=== PATIENT | female | born 1955 | race Caucasian/White ===

== ENCOUNTER 2019-09-09 07:21 | Outpatient (CLI) | payer MEDICARE, OTHER, SELFPAY ==
--- NOTE | ~2019-09-09 | CT_ITS ---
EXAMINATION: CT abdomen wo/w con DATE: 09/09/2019 08:16 INDICATION: Left kidney mass TECHNIQUE: Computed tomography (CT) of the abdomen was performed without intravenous contrast. CT of the abdomen was then performed with a total of 100 mL Omnipaque 350 intravenous contrast. The dose-le ngth product (DLP) was 525.12 mGy-cm. Automated exposure control and iterative reconstruction dentaZOOM were employed. COMPARISON: 09/02/2018, 01/21/2018 FINDINGS: The lung bases are clear. The heart size is normal. Cysts of the liver measure up to 7.7 cm in the right hepatic lobe. The spleen, pancreas, gallbladder, and adrenal glands are normal. There i s a stable 2.5 x 2.3 cm fat attenuation mass in the left mid kidney with thin internal septation. The right kidney is unremarkable. There are no pathologically enlarged abdominal lymph nodes. A moderate volume of colonic stool is present. There are no dilated loops of bowel. There is moderate lumbar sp ondylosis. A tiny fat-containing umbilical hernia is noted. IMPRESSION: 1. Stable left kidney mass, most consistent with an angiomyolipoma. Reviewed, dictated and finalized at location A.
[2019-09-09 07:49] LABS: Estimated Glomerular Filt Rate > 60
== END 2019-09-09 07:22 | disposition home or self-care (01) ==
PROVIDERS: PCP Internal Medicine; Visit Provider Urology
DX: N28.89 Other specified disorders of kidney and ureter (principal)
CPT/HCPCS: 74170; Q9965

== ENCOUNTER 2020-02-09 11:48 | Outpatient (CLI) | payer MEDICARE, SELFPAY ==
[2020-02-09 12:00] LABS: Basophils Absolute Auto 0.04 K/mm3 (0.00-0.10); Basophils Percent Auto 0.7 % (0.0-1.0); Eosinophils Absolute Auto 0.09 K/mm3 (0.02-0.50); Eosinophils Percent Auto 1.7 % (1.0-6.0); Immature Granulocyte Absolute 0.01 K/mm3 (0.00-0.00); Immature Granulocyte Percent A 0.2 % (0.0-0.0); Lymphocytes Absolute Auto 2.04 K/mm3 (1.10-4.50); Lymphocytes Percent Auto 38.2 % (18.0-42.0); Mean Corpuscular HGB Conc 31.4 g/dL (32.0-36.0); Mean Corpuscular Hemoglobin 25.8 pg (27.0-31.0); Mean Platelet Volume 11.3 fl (9.2-11.8); Monocytes Absolute Auto 0.51 K/mm3 (0.10-0.90); Monocytes Percent Auto 9.6 % (2.0-11.0); Neutrophils Absolute Auto 2.7 K/mm3 (1.7-7.2); Neutrophils Percent Auto 49.6 % (50.0-70.0); Platelet Count Result 228 K/mm3 (150-420); Red Blood Count 4.27 M/mm3 (4.20-5.40); Red Cell Distribution Width 15.2 % (11.6-14.4); White Blood Count 5.3 K/mm3 (4.8-10.8)
[2020-02-09 12:26] LABS: Add Urine Microscopic? NO; Appearance Urine Clear (Clear); Bilirubin Urine Negative (Negative); Blood Urine Negative (Negative); Color Urine Yellow (Yellow); Glucose Urine UA Negative (Negative); Ketones Urine Negative (Negative); Leukocyte Esterase Ur Negative (Negative); Nitrate Urine Negative (Negative); Protein Urine Negative (Negative); Specific Grav Ur 1.025 (1.010-1.020); Urobilinogen Urine 0.2 mg/dL (0.2-1.0); pH Urine 5.5 (5.0-8.0)
[2020-02-09 13:04] LABS: Alanine Aminotransferase 23 U/L (14-59); Alkaline Phosphatase 85 U/L (46-116); Anion Gap 10 mmol/L (8-16); Aspartate Amino Transferase 20 U/L (15-37); Bilirubin,Total 0.2 mg/dL (0.00-1.00); Blood Urea Nitrogen 12 mg/dL (7-18); Calcium 9.1 mg/dL (8.5-10.1); Carbon Dioxide 26 mmol/L (21-32); Chloride 105 mmol/L (98-108); Cholesterol 209 mg/dL (0-200); Estimated Glomerular Filt Rate > 60; Glucose 84 mg/dL (70-99); HDL Direct 90 mg/dL (40-60); LDL Cholesterol Calculated 97 mg/dL (<130); Osmolality Calculated 290 mOsm/kg (285-295); Potassium 4.3 mmol/L (3.5-5.1); Sodium 141 mmol/L (136-145); Thyroid Stimulating Hormone 1.86 uIU/mL (0.36-3.74); Triglycerides 112 mg/dL (0-150)
[2020-02-09 16:46] LABS: Reticulocyte Hemoglobin Conten 29.3 pg (28.0-35.0); Reticulocyte Percent 1.05 % (0.50-1.50); Reticulocytes Absolute 0.04 M/mm3 (0.02-0.1)
[2020-02-09 17:05] LABS: Ferritin 6 ng/mL (8-252); Iron 28 ug/dL (50-170); Percent Iron Saturation 8 % (12-57)
== END 2020-02-09 11:49 | disposition home or self-care (01) ==
LOC: CHSLAB 11:50
PROVIDERS: PCP Internal Medicine; Visit Provider Internal Medicine
DX: R94.5 Abnormal results of liver function studies (principal); F32.9 Major depressive disorder, single episode, unspecified; D64.9 Anemia, unspecified; Z00.00 Encounter for general adult medical examination without abnormal findings; Z13.220 Encounter for screening for lipoid disorders
CPT/HCPCS: 36415; 80053; 80061; 81003; 82728; 83540; 83550; 84443; 85025; 85046

== ENCOUNTER 2021-02-09 10:01 | Outpatient (CLI) | payer MEDICARE, SELFPAY ==
[2021-02-09 10:50] LABS: Influenza A QL RT-PCR Negative (Negative); Influenza B QL RT-PCR Negative (Negative); SARS-CoV-2 RNA PCR Negative (Negative)
[2021-02-09 12:46] LABS: Add Urine Microscopic? YES; Appearance Urine Clear (Clear); Basophils Absolute Auto 0.04 K/mm3 (0.00-0.10); Basophils Percent Auto 0.5 % (0.0-1.0); Bilirubin Urine Negative (Negative); Blood Urine 2+ (Negative); Color Urine Yellow (Yellow); Eosinophils Absolute Auto 0.15 K/mm3 (0.02-0.50); Eosinophils Percent Auto 1.8 % (1.0-6.0); Glucose Urine UA Negative (Negative); Hematocrit 44.9 % (35.0-42.0); Hemoglobin 14.9 g/dL (11.7-13.8); Immature Granulocyte Absolute 0.03 K/mm3 (0.00-0.00); Immature Granulocyte Percent A 0.4 % (0.0-0.0); Ketones Urine Negative (Negative); Leukocyte Esterase Ur Trace (Negative); Lymphocytes Absolute Auto 2.18 K/mm3 (1.10-4.50); Lymphocytes Percent Auto 26.2 % (18.0-42.0); Mean Corpuscular HGB Conc 33.2 g/dL (32.0-36.0); Mean Corpuscular Hemoglobin 30.3 pg (27.0-31.0); Mean Corpuscular Volume 91.3 fL (78.0-102.0); Monocytes Absolute Auto 0.88 K/mm3 (0.10-0.90); Monocytes Percent Auto 10.6 % (2.0-11.0); Neutrophils Percent Auto 60.5 % (50.0-70.0); Nitrate Urine Negative (Negative); Platelet Count Result 204 K/mm3 (150-420); Protein Urine Negative (Negative); Red Blood Count 4.92 M/mm3 (4.20-5.40); Specific Grav Ur >= 1.030 (1.010-1.020); Urobilinogen Urine 0.2 mg/dL (0.2-1.0); White Blood Count 8.3 K/mm3 (4.8-10.8)
[2021-02-09 12:57] LABS: WBC Urine None seen /hpf (0-3)
[2021-02-09 12:58] LABS: Bacteria Urine Trace /hpf; Mucus Urine Moderate /lpf
[2021-02-09 13:26] LABS: Alanine Aminotransferase 21 U/L (14-59); Albumin Level 4.2 g/dL (3.4-5.0); Alkaline Phosphatase 92 U/L (46-116); Anion Gap 8 mmol/L (8-16); Aspartate Amino Transferase 16 U/L (15-37); Bilirubin,Total 0.3 mg/dL (0.00-1.00); Blood Urea Nitrogen 12 mg/dL (7-18); Calcium 9.4 mg/dL (8.5-10.1); Carbon Dioxide 30 mmol/L (21-32); Chloride 104 mmol/L (98-108); Cholesterol 217 mg/dL (0-200); Estimated Glomerular Filt Rate > 60; Glucose 86 mg/dL (70-99); HDL Direct 97 mg/dL (40-60); LDL Cholesterol Calculated 106 mg/dL (<130); Osmolality Calculated 292 mOsm/kg (285-295); Potassium 4.3 mmol/L (3.5-5.1); Sodium 142 mmol/L (136-145); Thyroid Stimulating Hormone 1.45 uIU/mL (0.36-3.74); Total Protein 7.6 g/dL (6.4-8.2); Triglycerides 70 mg/dL (0-150)
== END 2021-02-09 10:02 | disposition home or self-care (01) ==
PROVIDERS: PCP Internal Medicine; Visit Provider Internal Medicine
DX: F34.1 Dysthymic disorder (principal); J02.9 Acute pharyngitis, unspecified; R52 Pain, unspecified; Z20.822 Contact with and (suspected) exposure to COVID-19; R53.83 Other fatigue; D72.818 Other decreased white blood cell count; D64.9 Anemia, unspecified; E78.5 Hyperlipidemia, unspecified; Z00.00 Encounter for general adult medical examination without abnormal findings
CPT/HCPCS: 36415; 80053; 80061; 81001; 84443; 85025; 87502; C9803; U0003; U0005

== ENCOUNTER 2022-02-17 11:32 | Outpatient (CLI) | payer MEDICARE, SELFPAY ==
[2022-02-17 11:46] LABS: Add Urine Microscopic? NO; Appearance Urine Clear (Clear); Basophils Absolute Auto 0.04 K/mm3 (0.00-0.10); Basophils Percent Auto 0.7 % (0.0-1.0); Bilirubin Urine Negative (Negative); Blood Urine Negative (Negative); Color Urine Yellow (Yellow); Eosinophils Absolute Auto 0.13 K/mm3 (0.02-0.50); Eosinophils Percent Auto 2.3 % (1.0-6.0); Glucose Urine UA Negative (Negative); Hematocrit 40.1 % (35.0-42.0); Hemoglobin 13.5 g/dL (11.7-13.8); Immature Granulocyte Absolute 0.01 K/mm3 (0.00-0.00); Immature Granulocyte Percent A 0.2 % (0.0-0.0); Ketones Urine Negative (Negative); Leukocyte Esterase Ur Negative (Negative); Lymphocytes Absolute Auto 2.48 K/mm3 (1.10-4.50); Lymphocytes Percent Auto 44.4 % (18.0-42.0); Mean Corpuscular HGB Conc 33.7 g/dL (32.0-36.0); Mean Corpuscular Hemoglobin 30.3 pg (27.0-31.0); Mean Corpuscular Volume 89.9 fL (78.0-102.0); Mean Platelet Volume 10.6 fl (9.2-11.8); Monocytes Absolute Auto 0.48 K/mm3 (0.10-0.90); Monocytes Percent Auto 8.6 % (2.0-11.0); Neutrophils Absolute Auto 2.5 K/mm3 (1.7-7.2); Neutrophils Percent Auto 43.8 % (50.0-70.0); Nitrate Urine Negative (Negative); Platelet Count Result 189 K/mm3 (150-420); Protein Urine Negative (Negative); Red Blood Count 4.46 M/mm3 (4.20-5.40); Specific Grav Ur >= 1.030 (1.010-1.020); Urobilinogen Urine 0.2 mg/dL (0.2-1.0); White Blood Count 5.6 K/mm3 (4.8-10.8)
[2022-02-17 14:05] LABS: Alanine Aminotransferase 21 U/L (14-59); Albumin Level 4.2 g/dL (3.4-5.0); Alkaline Phosphatase 87 U/L (46-116); Anion Gap 9 mmol/L (8-16); Aspartate Amino Transferase 16 U/L (15-37); Bilirubin,Total 0.3 mg/dL (0.00-1.00); Blood Urea Nitrogen 11 mg/dL (7-18); Carbon Dioxide 29 mmol/L (21-32); Chloride 105 mmol/L (98-108); Cholesterol 217 mg/dL (0-200); Estimated Glomerular Filt Rate > 60; Glucose 92 mg/dL (70-99); HDL Direct 83 mg/dL (40-60); LDL Cholesterol Calculated 119 mg/dL (<130); Osmolality Calculated 295 mOsm/kg (285-295); Potassium 4.2 mmol/L (3.5-5.1); Sodium 143 mmol/L (136-145); Total Protein 7.1 g/dL (6.4-8.2); Triglycerides 77 mg/dL (0-150)
== END 2022-02-17 11:33 | disposition home or self-care (01) ==
LOC: CHSLAB 11:34
PROVIDERS: PCP Internal Medicine; Visit Provider Internal Medicine
DX: F34.1 Dysthymic disorder (principal); Z00.00 Encounter for general adult medical examination without abnormal findings; E78.5 Hyperlipidemia, unspecified; D64.9 Anemia, unspecified; R53.83 Other fatigue
CPT/HCPCS: 36415; 80053; 80061; 81003; 84443; 85025

== ENCOUNTER 2023-02-19 09:09 | Outpatient (CLI) | payer MEDICARE, SELFPAY ==
[2023-02-19 09:24] LABS: Appearance Urine Clear (Clear); Basophils Absolute Auto 0.03 K/mm3 (0.00-0.10); Basophils Percent Auto 0.6 % (0.0-1.0); Bilirubin Urine Negative (Negative); Blood Urine Negative (Negative); Color Urine Light Yellow (Yellow); Eosinophils Absolute Auto 0.17 K/mm3 (0.02-0.50); Eosinophils Percent Auto 3.5 % (1.0-6.0); Glucose Urine UA Negative (Negative); Hematocrit 40.4 % (35.0-42.0); Hemoglobin 13.5 g/dL (11.7-13.8); Immature Granulocyte Absolute 0.01 K/mm3 (0.00-0.00); Immature Granulocyte Percent A 0.2 % (0.0-0.0); Ketones Urine Negative (Negative); Leukocyte Esterase Ur Trace (Negative); Lymphocytes Percent Auto 37.4 % (18.0-42.0); Mean Corpuscular HGB Conc 33.4 g/dL (32.0-36.0); Mean Corpuscular Volume 89.8 fL (78.0-102.0); Mean Platelet Volume 10.5 fl (9.2-11.8); Monocytes Absolute Auto 0.41 K/mm3 (0.10-0.90); Monocytes Percent Auto 8.5 % (2.0-11.0); Neutrophils Absolute Auto 2.4 K/mm3 (1.7-7.2); Neutrophils Percent Auto 49.8 % (50.0-70.0); Nitrate Urine Negative (Negative); Platelet Count Result 182 K/mm3 (150-420); Protein Urine Negative (Negative); Red Cell Distribution Width 13.1 % (11.6-14.4); Specific Grav Ur >= 1.030 (1.010-1.020); Urobilinogen Urine 0.2 mg/dL (0.2-1.0); White Blood Count 4.8 K/mm3 (4.8-10.8)
[2023-02-19 09:30] LABS: Add Urine Microscopic? YES; Bacteria Urine Trace /hpf; Mucus Urine Few /lpf; RBC Urine None seen /hpf (0-2); Squamous Epithelial Cell Urine Rare /hpf (Few); WBC Urine 0-3 /hpf (0-3)
[2023-02-19 10:17] LABS: Alanine Aminotransferase 25 U/L (14-59); Albumin Level 4.1 g/dL (3.4-5.0); Alkaline Phosphatase 95 U/L (46-116); Anion Gap 0 mmol/L (8-16); Aspartate Amino Transferase 16 U/L (15-37); Bilirubin,Total 0.3 mg/dL (0.00-1.00); Blood Urea Nitrogen 11 mg/dL (7-18); Carbon Dioxide 34 mmol/L (21-32); Chloride 104 mmol/L (98-108); Cholesterol 210 mg/dL (0-200); Estimated Glomerular Filt Rate > 60; Glucose 84 mg/dL (70-99); HDL Direct 71 mg/dL (40-60); LDL Cholesterol Calculated 120 mg/dL (<130); Osmolality Calculated 284 mOsm/kg (285-295); Potassium 4.2 mmol/L (3.5-5.1); Sodium 138 mmol/L (136-145); Thyroid Stimulating Hormone 1.54 uIU/mL (0.36-3.74); Total Protein 7.3 g/dL (6.4-8.2); Triglycerides 96 mg/dL (0-150)
== END 2023-02-19 09:10 | disposition home or self-care (01) ==
LOC: CHSLAB 09:14
PROVIDERS: PCP Internal Medicine; Visit Provider Internal Medicine
DX: F32.A Depression, unspecified (principal); Z13.6 Encounter for screening for cardiovascular disorders
CPT/HCPCS: 36415; 80053; 80061; 81001; 84443; 85025

== ENCOUNTER 2023-12-04 14:23 | Outpatient (CLI) | payer MEDICARE, SELFPAY ==
[2023-12-04 14:35] LABS: Add Urine Microscopic? NO; Appearance Urine Clear (Clear); Basophils Absolute Auto 0.03 K/mm3 (0.00-0.10); Basophils Percent Auto 0.6 % (0.0-1.0); Bilirubin Urine Negative (Negative); Blood Urine Negative (Negative); Color Urine Yellow (Yellow); Eosinophils Absolute Auto 0.16 K/mm3 (0.02-0.50); Glucose Urine UA Negative (Negative); Hematocrit 40.9 % (35.0-42.0); Hemoglobin 13.6 g/dL (11.7-13.8); Immature Granulocyte Absolute 0.01 K/mm3 (0.00-0.00); Immature Granulocyte Percent A 0.2 % (0.0-0.0); Ketones Urine Negative (Negative); Leukocyte Esterase Ur Negative (Negative); Lymphocytes Absolute Auto 2.18 K/mm3 (1.10-4.50); Lymphocytes Percent Auto 41.1 % (18.0-42.0); Mean Corpuscular HGB Conc 33.3 g/dL (32-36); Mean Corpuscular Hemoglobin 29.1 pg (27.0-31.0); Mean Corpuscular Volume 87.6 fL (78.0-102.0); Mean Platelet Volume 10.8 fl (9.2-11.8); Monocytes Absolute Auto 0.42 K/mm3 (0.10-0.90); Monocytes Percent Auto 7.9 % (2.0-11.0); Neutrophils Absolute Auto 2.51 K/mm3 (1.70-7.20); Neutrophils Percent Auto 47.2 % (50.0-70.0); Nitrate Urine Negative (Negative); Platelet Count Result 223 K/mm3 (150-420); Protein Urine Negative (Negative); Red Blood Count 4.67 M/mm3 (4.20-5.40); Red Cell Distribution Width 13.4 % (11.6-14.4); Specific Grav Ur >= 1.030 (1.010-1.020); Urobilinogen Urine 0.2 mg/dL (0.2-1.0); White Blood Count 5.3 K/mm3 (4.8-10.8); pH Urine 5.5 (5.0-8.0)
[2023-12-04 15:14] LABS: Alanine Aminotransferase 24 U/L (14-59); Alkaline Phosphatase 75 U/L (46-116); Anion Gap 7 mmol/L (4-12); Aspartate Amino Transferase 17 U/L (15-37); Bilirubin,Total 0.3 mg/dL (0.00-1.00); Blood Urea Nitrogen 14 mg/dL (7-18); Calcium 9.3 mg/dL (8.5-10.1); Carbon Dioxide 31 mmol/L (21-32); Chloride 102 mmol/L (98-108); Cholesterol 236 mg/dL (0-200); Estimated Glomerular Filt Rate > 60; Glucose 93 mg/dL (70-99); HDL Direct 81 mg/dL (40-60); LDL Cholesterol Calculated 136 mg/dL (<130); Osmolality Calculated 290 mOsm/kg (285-295); Potassium 4.1 mmol/L (3.5-5.1); Sodium 140 mmol/L (136-145); Triglycerides 97 mg/dL (0-150)
== END 2023-12-04 14:24 | disposition home or self-care (01) ==
LOC: CHSLAB 14:25
PROVIDERS: PCP Internal Medicine; Visit Provider Internal Medicine
DX: E78.5 Hyperlipidemia, unspecified (principal)
CPT/HCPCS: 36415; 80053; 80061; 81003; 85025

== ENCOUNTER 2024-12-10 09:21 | Outpatient (CLI) | payer MEDICARE, SELFPAY ==
[2024-12-10 09:44] LABS: Hematocrit 40.2 % (35.0-42.0); Hemoglobin 13.2 g/dL (11.7-13.8); Mean Corpuscular HGB Conc 32.8 g/dL (32-36); Mean Corpuscular Hemoglobin 29.6 pg (27.0-31.0); Mean Corpuscular Volume 90.1 fL (78.0-102.0); Platelet Count Result 204 K/mm3 (150-420); Red Blood Count 4.46 M/mm3 (4.20-5.40); White Blood Count 4.9 K/mm3 (4.8-10.8)
[2024-12-10 09:45] LABS: Add Urine Microscopic? YES; Appearance Urine Clear (Clear); Glucose Urine UA Negative (Negative); Leukocyte Esterase Ur Trace (Negative); Nitrate Urine Negative (Negative); Specific Grav Ur 1.020 (1.010-1.020)
[2024-12-10 10:10] LABS: Alanine Aminotransferase 21 U/L (6-35); Albumin Level 4.7 g/dL (3.5-5.1); Alkaline Phosphatase 65 U/L (38-126); Anion Gap 9 mmol/L (4-12); Aspartate Amino Transferase 28 U/L (14-36); Bilirubin,Total 0.4 mg/dL (0.2-1.3); Blood Urea Nitrogen 17 mg/dL (7-17); Calcium 9.9 mg/dL (8.4-10.2); Carbon Dioxide 29 mmol/L (22-30); Chloride 107 mmol/L (98-107); Cholesterol 218 mg/dL (0-200); Estimated Glomerular Filt Rate > 60; Glucose 93 mg/dL (65-110); HDL Direct 86 mg/dL; Osmolality Calculated 301 mOsm/kg (285-295); Potassium 4.8 mmol/L (3.4-5.0); Sodium 145 mmol/L (137-145); Total Protein 8.0 g/dL (6.3-8.2); Triglycerides 96 mg/dL (<150)
[2024-12-10 10:40] LABS: Thyroid Stimulating Hormone 1.520 uIU/mL (0.465-4.680)
== END 2024-12-10 09:22 | disposition home or self-care (01) ==
PROVIDERS: PCP Internal Medicine; Visit Provider Internal Medicine
DX: E78.5 Hyperlipidemia, unspecified (principal); N39.0 Urinary tract infection, site not specified
CPT/HCPCS: 36415; 80053; 80061; 81001; 84443; 85027